=== PATIENT | male | born 1940 | race Caucasian/White ===

== ENCOUNTER 2019-04-13 16:36 | Inpatient (IN) | payer MEDICARE ==
[2019-04-13] MEDS ORDERED: IPRATROPIUM-ALBUTEROL 3 ML NEB INHALATION STA ×3 (17:05→19:16)
[2019-04-13] MEDS ORDERED: SODIUM CHLORIDE 0.9% 1,000 ML IV STA (17:05)
[2019-04-13] MEDS ORDERED: methylPREDNISolone SOD SUCCI 125 MG/2 ML VIAL IV STA (17:05)
--- NOTE | 2019-04-13 17:08 | ED ---
SOB HPI - General Chief Complaint: Shortness of Breath Stated Complaint: SOB Time Seen by Provider: 04/13/19 16:45 Source: patient, family, RN notes reviewed Mode of arrival: ambulatory Limitations: no limitations - History of Present Illness Initial Comments: This is a 78-year-old male with a history of COPD who states having shortness of breath for the past 5 days getting progressively worse he has exertional dyspnea and dry cough no fevers chills or sweats reported no E was diaphoretic upon arrival. No chest pain reported no other modifying factors MD Complaint: shortness of breath - Related Data Home Medications Medication Instructions Recorded Confirmed Aspirin 325 mg PO HS 04/13/19 04/13/19 Gemfibrozil [Lopid] 600 mg PO HS 04/13/19 04/13/19 Ranitidine HCl [Zantac] 150 mg PO HS 04/13/19 04/13/19 Allergies Allergy/AdvReac Type Severity Reaction Status Date / Time No Known Allergies Allergy Verified 04/13/19 17:14 Review of Systems ROS Statement: Those systems with pertinent positive or pertinent negative responses have been documented in the HPI. ROS Other: All systems not noted in ROS Statement are negative. Past Medical History Past Medical History: COPD, GERD/Reflux, Hyperlipidemia History of Any Multi-Drug Resistant Organisms: None Reported Additional Past Surgical History / Comment(s): carotid artery, L leg angioplasty with stent Past Psychological History: No Psychological Hx Reported Smoking Status: Former smoker Past Alcohol Use History: None Reported Past Drug Use History: None Reported General Exam - General Exam Comments Initial Comments: Is a well-developed asthenic appearing male who is awake alert oriented 3 Limitations: no limitations General appearance: alert, anxious Head exam: Present: atraumatic, normocephalic, normal inspection Eye exam: Present: normal appearance, PERRL, EOMI. Absent: scleral icterus, conjunctival injection, periorbital swelling ENT exam: Present: mucous membranes dry Neck exam: Present: normal inspection. Absent: tenderness, meningismus, lymphadenopathy Respiratory exam: Present: wheezes, rales, decreased breath sounds. Absent: respiratory distress, rhonchi, stridor Cardiovascular Exam: Present: normal rhythm, tachycardia, normal heart sounds. Absent: systolic murmur, diastolic murmur, rubs, gallop, clicks GI/Abdominal exam: Present: soft, normal bowel sounds. Absent: distended, tenderness, guarding, rebound, rigid Extremities exam: Present: normal inspection, full ROM, normal capillary refill. Absent: tenderness, pedal edema, joint swelling, calf tenderness Back exam: Present: normal inspection Neurological exam: Present: alert, oriented X3, CN II-XII intact Psychiatric exam: Present: normal affect, normal mood Skin exam: Present: warm, dry, intact, normal color. Absent: rash Course Vital Signs 04/13/19 04/13/19 04/13/19 16:38 17:17 17:25 Temperature 98 F Pulse Rate 131 H 117 H 128 H Respiratory 24 20 20 Rate Blood Pressure 205/94 O2 Sat by Pulse 83 L Oximetry 04/13/19 04/13/19 04/13/19 17:30 18:19 18:30 Temperature Pulse Rate 118 H 113 H 120 H Respiratory 37 H 20 37 H Rate Blood Pressure 150/84 129/102 O2 Sat by Pulse 93 L 98 Oximetry 04/13/19 04/13/19 04/13/19 19:00 19:18 19:31 Temperature 97.2 F L Pulse Rate 114 H 110 H 113 H Respiratory 46 H 20 20 Rate Blood Pressure 152/75 147/71 O2 Sat by Pulse 96 96 Oximetry 04/13/19 19:41 Temperature Pulse Rate 115 H Respiratory 20 Rate Blood Pressure O2 Sat by Pulse Oximetry - Reevaluation(s) Reevaluation #1: 04/13/19 20:08 Reevaluation patient after initial treatment revealed minimal improvement. Medical Decision Making - Medical Decision Making Patient did require multiple breathing treatments and will be admitted I did discuss case with Dr. Travis. He does have evidence of pneumonia COPD exacerbation. Patient will be made to Dr. Fernando - Lab Data Result diagrams: 04/13/19 16:54 04/13/19 16:54 Lab Results 04/13/19 04/13/19 04/13/19 Range/Units 16:54 16:54 16:54 WBC 10.9 H (3.8-10.6) k/uL RBC 4.27 L (4.30-5.90) m/uL Hgb 13.2 (13.0-17.5) gm/dL Hct 40.2 (39.0-53.0) % MCV 94.2 (80.0-100.0) fL MCH 31.0 (25.0-35.0) pg MCHC 32.9 (31.0-37.0) g/dL RDW 14.4 (11.5-15.5) % Plt Count 264 (150-450) k/uL Neutrophils % 91 % Lymphocytes % 5 % Monocytes % 2 % Eosinophils % 0 % Basophils % 0 % Neutrophils # 9.9 H (1.3-7.7) k/uL Lymphocytes # 0.5 L (1.0-4.8) k/uL Monocytes # 0.3 (0-1.0) k/uL Eosinophils # 0.0 (0-0.7) k/uL Basophils # 0.0 (0-0.2) k/uL PT (9.0-12.0) sec INR (<1.2) APTT (22.0-30.0) sec Sodium 133 L (137-145) mmol/L Potassium 3.6 (3.5-5.1) mmol/L Chloride 97 L (98-107) mmol/L Carbon Dioxide 19 L (22-30) mmol/L Anion Gap 17 mmol/L BUN 26 H (9-20) mg/dL Creatinine 1.06 (0.66-1.25) mg/dL Est GFR (CKD-EPI)AfAm 78 (>60 ml/min/1.73 sqM) Est GFR (CKD-EPI)NonAf 67 (>60 ml/min/1.73 sqM) Glucose 139 H (74-99) mg/dL Calcium 8.7 (8.4-10.2) mg/dL Magnesium 2.5 H (1.6-2.3) mg/dL Total Bilirubin 2.0 H (0.2-1.3) mg/dL AST 50 (17-59) U/L ALT 32 (21-72) U/L Alkaline Phosphatase 283 H (38-126) U/L Troponin I (0.000-0.034) ng/mL NT-Pro-B Natriuret Pep 534 pg/mL Total Protein 6.3 (6.3-8.2) g/dL Albumin 3.4 L (3.5-5.0) g/dL 04/13/19 04/13/19 Range/Units 16:54 16:54 WBC (3.8-10.6) k/uL RBC (4.30-5.90) m/uL Hgb (13.0-17.5) gm/dL Hct (39.0-53.0) % MCV (80.0-100.0) fL MCH (25.0-35.0) pg MCHC (31.0-37.0) g/dL RDW (11.5-15.5) % Plt Count (150-450) k/uL Neutrophils % % Lymphocytes % % Monocytes % % Eosinophils % % Basophils % % Neutrophils # (1.3-7.7) k/uL Lymphocytes # (1.0-4.8) k/uL Monocytes # (0-1.0) k/uL Eosinophils # (0-0.7) k/uL Basophils # (0-0.2) k/uL PT 10.8 (9.0-12.0) sec INR 1.0 (<1.2) APTT 27.5 (22.0-30.0) sec Sodium (137-145) mmol/L Potassium (3.5-5.1) mmol/L Chloride (98-107) mmol/L Carbon Dioxide (22-30) mmol/L Anion Gap mmol/L BUN (9-20) mg/dL Creatinine (0.66-1.25) mg/dL Est GFR (CKD-EPI)AfAm (>60 ml/min/1.73 sqM) Est GFR (CKD-EPI)NonAf (>60 ml/min/1.73 sqM) Glucose (74-99) mg/dL Calcium (8.4-10.2) mg/dL Magnesium (1.6-2.3) mg/dL Total Bilirubin (0.2-1.3) mg/dL AST (17-59) U/L ALT (21-72) U/L Alkaline Phosphatase (38-126) U/L Troponin I <0.012 (0.000-0.034) ng/mL NT-Pro-B Natriuret Pep pg/mL Total Protein (6.3-8.2) g/dL Albumin (3.5-5.0) g/dL - EKG Data -: EKG Interpreted by Ks EKG shows normal: sinus rhythm (EKG shows sinus tachycardia rate was 125. Interval 132 QRS duration 80 daily since QTC 322/464 evidence of LVH) - Radiology Data Radiology results: report reviewed (I did review the imaging and report evidence of right lower lobe infiltrate with pulmonary fibrosis findings), image reviewed Critical Care Time Critical Care Time: Yes Critical Care Time: 37 minutes of critical care time which includes initial presentation with history physical labs x-rays several reevaluation patient response to therapy discussion with the admitting physician admission orders documentation the above Disposition Clinical Impression: Right lower lobe pneumonia, Adult respiratory distress syndrome, Acute exacerbation of chronic obstructive airways disease, Tachycardia, Dehydration Disposition: ADMITTED IP TO THIS HOSP Condition: Fair Referrals: Adrien Fernando DO [Primary Care Provider] - 1-2 days
[2019-04-13 17:25] LABS: Partial Thromboplastin Time 27.5 sec (22.0-30.0); Prothrombin Time 10.8 sec (9.0-12.0)
[2019-04-13 17:32] LABS: Basophils % (A) 0 %; Eosinophils % (A) 0 %; HCT 40.2 % (39.0-53.0); HGB 13.2 gm/dL (13.0-17.5); Lymphocytes # (A) 0.5 k/uL (1.0-4.8); Lymphocytes % (A) 5 %; MCHC 32.9 g/dL (31.0-37.0); MCV 94.2 fL (80.0-100.0); Mean Platelet Volume 8.5; Monocytes # (A) 0.3 k/uL (0-1.0); Monocytes % (A) 2 %; Neutrophils # (A) 9.9 k/uL (1.3-7.7); Neutrophils % (A) 91 %; Platelet Count 264 k/uL (150-450); RBC 4.27 m/uL (4.30-5.90); RDW 14.4 % (11.5-15.5); WBC 10.9 k/uL (3.8-10.6)
[2019-04-13 17:34] LABS: Albumin 3.4 g/dL (3.5-5.0); Calcium 8.7 mg/dL (8.4-10.2); Magnesium 2.5 mg/dL (1.6-2.3); Potassium 3.6 mmol/L (3.5-5.1); Total Protein 6.3 g/dL (6.3-8.2)
[2019-04-13] MEDS ORDERED: SODIUM CHLORIDE 0.9% 500 ML 500 ML IV STA (17:38)
--- NOTE | 2019-04-13 17:47 | XR ---
EXAMINATION TYPE: XR chest 2V DATE OF EXAM: 04/13/2019 COMPARISON: NONE HISTORY: Difficulty breathing TECHNIQUE: Frontal and lateral views of the chest are obtained. FINDINGS: There is extensive coarse interstitial and alveolar pulmonary infiltrates. Heart size is n ormal. I do not suspect heart failure. There is slight blunting of the right costophrenic angle. Ther e are chest leads. IMPRESSION: Pulmonary interstitial fibrosis. Acute pneumonia right lower lobe is possible. No obviou s heart failure.
[2019-04-13] MEDS ORDERED: PNEUMONIA PROTOCOL UTILIZED 1 EACH MISC PO PRN (20:11)
[2019-04-13] MEDS ORDERED: AZITHROMYCIN 500 MG in SODIUM CHLORIDE 0.9% 250 ML IVPB STA (20:11)
[2019-04-13] MEDS: SODIUM CHLORIDE 0.9% 1,000 ML IV SCH (21:09)
[2019-04-13] MEDS ORDERED: SODIUM CHLORIDE 0.9% 500 ML 500 ML IV ONE (21:11)
[2019-04-13] MEDS: FENOFIBRATE 160 MG TAB PO SCH (21:57)
[2019-04-13] MEDS: FAMOTIDINE 20 MG TAB PO SCH (21:57)
[2019-04-13] MEDS: ASPIRIN 325 MG TAB PO SCH (21:58)
[2019-04-13] MEDS: IPRATROPIUM-ALBUTEROL 3 ML NEB INHALATION SCH (22:58)
[2019-04-13] MEDS: methylPREDNISolone SOD SUCCI 125 MG/2 ML VIAL IV SCH (23:42)
[2019-04-14] MEDS: IPRATROPIUM-ALBUTEROL 3 ML NEB INHALATION SCH ×6 (03:10→23:54)
[2019-04-14 03:12] VITALS: BMI 21.9
[2019-04-14] MEDS: methylPREDNISolone SOD SUCCI 125 MG/2 ML VIAL IV SCH ×4 (06:04→21:28)
--- NOTE | 2019-04-14 07:46 | XR ---
EXAMINATION TYPE: XR chest 2V DATE OF EXAM: 04/14/2019 HISTORY: pneumonia. REFERENCE: Previous study dated 04/13/2019. FINDINGS: The lungs are overinflated. There is worsening interstitial change present bilaterally in t he lung bases. The heart is not enlarged. There is blunting of both CP angles. IMPRESSION: 1. COPD. 2. WORSENING INTERSTITIAL LUNG DISEASE LIKELY REPRESENTING ATYPICAL PNEUMONIA. 3. SMALL, BILATERAL EFFUSIONS.
[2019-04-14] MEDS: AZITHROMYCIN 500 MG TAB PO SCH (09:15)
[2019-04-14] MEDS: INSULIN ASPART (NovoLOG) 100 UNIT/ML VIAL SQ SCH ×3 (12:04→22:28)
--- NOTE | 2019-04-14 12:05 | CONS ---
CONSULTATION DATE OF CONSULTATION: April 14, 2019 This is a 78-year-old male, well known to me. I serve as his primary doctor. He does have a history of underlying COPD, but in the past has refused treatment for COPD. He also suffers from hyperlipidemia and acid reflux disease. Anyway, he was [place] at [place] with the family and grandkids. Up there over the last 5 days or so, he noted that he got progressively more short of breath. In addition, he was coughing, producing some phlegm. No fever, chills or chest pain. As the days went on, he got worse and worse. He noticed that when he was cutting the lawn and just walking on a flat surface. He got so bad that he decided to come into the emergency room on April 13 to be evaluated. He was seen by the ER physician there. He was admitted with a diagnosis of pneumonia and COPD exacerbation. For many years, Alvaro has been a heavy smoker. He quit smoking 7 years ago when he was 71. He likely started smoking before he was 20 years of age. So he probably has more than 50 years of tobacco use at 1-2 packs a day. Occupationally, he worked at [employer], which is a [employer] company here in town. He retired a number of years back. Currently, he is feeling a bit better today than he did yesterday. HOME MEDICATIONS: Include aspirin, gemfibrozil, and ranitidine. ALLERGIES: Denied. MEDICAL HISTORY: Hyperlipidemia, acid reflux disease and COPD, although he has never really taken any treatments for COPD. SURGICAL HISTORY: Includes a carotid endarterectomy, left leg angioplasty with stent, and some other minor procedures. SOCIAL HISTORY: Positive for previous heavy tobacco use. He smoked for more than 50 years at 1-2 packs a day. Quit 7 years ago. Denies any significant alcohol use or illicit drug use. Occupational history that he worked previously at [employer]. He is currently retired. FAMILY HISTORY: Unremarkable. He states his family was relatively healthy. He does not recall his mother or father having any major medical issues. REVIEW OF SYSTEMS: CONSTITUTIONAL: Weakness. NEUROLOGIC negative. HEENT negative. CARDIOVASCULAR: Negative. PULMONARY: Shortness of breath, cough, phlegm production, although initially the phlegm production was minimal at best. GI negative. negative. RHEUMATOLOGIC negative. IMMUNOLOGIC negative. ENDOCRINOLOGIC negative. DERMATOLOGIC negative. PHYSICAL EXAMINATION: VITAL SIGNS: Current vital signs are reviewed. His temperature is 98.3. Heart rate 100, respiratory rate 20, blood pressure 157/80, mean 105. Saturations are in the low 90s on 6 L nasal cannula. When I entered the room, he was just completing a breathing treatment. There was some mild conversational dyspnea. No audible wheezing. No use of accessory muscles. HEENT examination is grossly unremarkable. Nasal O2 in place. NECK: Supple. Full range of motion. No adenopathy. Neck veins are flat. CARDIOVASCULAR examination reveals regular rhythm and rate. He is mildly tachycardic. Heart rate 100. It is regular. Sinus tachycardia. No S3, S4, or murmur. LUNGS: Some coarse rhonchi and wheezes. Breath sounds are diminished. Some crackles at the bases. ABDOMEN: Soft. Bowel sounds are heard. EXTREMITIES are intact. No cyanosis, clubbing, or edema. SKIN: Without rash. NEUROLOGIC examination is brief but nonfocal. LABS: Reviewed. White count 10.9, hemoglobin, hematocrit and platelet count all normal. PT/INR, PTT normal. Sodium 133, potassium 3.6, chloride 97, CO2 19 anion gap is 17, BUN and creatinine were 26 and 1.06. N terminal proBNP was 534. Albumin 3.4, magnesium 2.5. Bilirubin 2.0. I do not see a lactic acid 4. Chest x-ray shows changes of COPD as well as interstitial changes consistent with atypical pneumonia with small effusions. His chest x-ray in my opinion appears a bit worse than the initial x-ray from yesterday. Medications are reviewed. He is on Zithromax 500 mg a day orally and ceftriaxone 1 g a day IV. He is getting DuoNeb. He is also getting Solu-Medrol. We will go ahead and add some formoterol and Pulmicort. The rest of his medications look very appropriate. The antibiotic choice is perfect. ASSESSMENT: 1. Community-acquired pneumonia. 2. Acute hypoxemic respiratory failure. 3. Chronic obstructive pulmonary disease exacerbation in a patient with a previous history of heavy tobacco use. 4. History of acid reflux disease. 5. Hyperlipidemia. 6. Peripheral vascular occlusive disease. PLAN: The patient's medications are appropriate. We will add some Pulmicort and Perforomist. Additional recommendations and suggestions forthcoming. We will ask for blood, urine and sputum cultures. Prognosis is guarded. We will follow. MMODL / IJN: [id number] /
--- NOTE | 2019-04-14 14:15 | P.HPIM ---
History of Present Illness H&P Date: 04/14/19 Chief Complaint: Shortness of breath Mr. Irby is a 78-year-old male with a past medical history of hypertension, COPD, GERD, hyperlipidemia, carotid artery endarterectomy[, left leg angioplasty with stent coming in with a chief complaint of difficulty in breathing for the past 1 week. Patient mentions that he was mowing his lawn one week back when he inhaled a lot of dust particles and since then has been having mild difficulty in breathing. But for the past 1 day his difficulty in breathing has gotten worse that he could not take a flight of stairs without getting short of breath. Patient denies having any fevers chills or rigors. He denies having any cough. He has almost [id number] of smoking but quit 8-10 years back. In the emergency the patient had a chest x-ray which was showing interstitial lung disease with atypical pneumonia and bilateral small effusions. So the patient has been started on ceftriaxone and Zithromax and admitted to the floors for further management. Review of Systems REVIEW OF SYSTEMS: CONSTITUTIONAL: No fever, no malaise, no fatigue. HEENT: No recent visual problems or hearing problems. Denied any sore throat. CARDIOVASCULAR: No chest pain, orthopnea, PND, no palpitations, no syncope. PULMONARY: As per HPI GASTROINTESTINAL: No diarrhea, no nausea, no vomiting, no abdominal pain. NEUROLOGICAL: No headaches, no weakness, no numbness. HEMATOLOGICAL: Denies any bleeding or petechiae. GENITOURINARY: Denies any burning micturition, frequency, or urgency. MUSCULOSKELETAL/RHEUMATOLOGICAL: Denies any joint pain, swelling, or any muscle pain. ENDOCRINE: Denies any polyuria or polydipsia. The rest of the 14-point review of systems is negative. Past Medical History Past Medical History: COPD, GERD/Reflux, Hyperlipidemia History of Any Multi-Drug Resistant Organisms: None Reported Additional Past Surgical History / Comment(s): carotid artery, L leg angioplasty with stent Past Anesthesia/Blood Transfusion Reactions: No Reported Reaction Past Psychological History: No Psychological Hx Reported Smoking Status: Former smoker Past Alcohol Use History: None Reported Past Drug Use History: None Reported - Past Family History Mother Family Medical History: No Reported History Medications and Allergies Home Medications Medication Instructions Recorded Confirmed Type Aspirin 325 mg PO HS 04/13/19 04/13/19 History Gemfibrozil [Lopid] 600 mg PO HS 04/13/19 04/13/19 History Ranitidine HCl [Zantac] 150 mg PO HS 04/13/19 04/13/19 History Allergies Allergy/AdvReac Type Severity Reaction Status Date / Time No Known Allergies Allergy Verified 04/13/19 17:14 Physical Exam Vitals: Vital Signs Temp Pulse Pulse Resp BP BP Pulse Ox 04/14/19 12:21 103 H 04/14/19 12:08 100 04/14/19 09:14 106 H 04/14/19 08:59 112 H 91 L 04/14/19 05:00 98.3 F 113 H 20 157/80 90 L 04/14/19 03:17 108 H 04/14/19 03:10 104 H 04/13/19 23:09 112 H 04/13/19 23:01 110 H 04/13/19 22:50 92 20 04/13/19 22:04 97.8 F 110 H 20 173/86 96 04/13/19 21:41 19 04/13/19 21:00 190/86 04/13/19 20:00 157/66 04/13/19 19:41 115 H 20 04/13/19 19:31 113 H 20 04/13/19 19:18 97.2 F L 110 H 20 147/71 96 04/13/19 19:00 114 H 46 H 152/75 96 04/13/19 18:30 120 H 37 H 129/102 98 04/13/19 18:19 113 H 20 04/13/19 17:30 118 H 37 H 150/84 93 L 04/13/19 17:25 128 H 20 04/13/19 17:17 117 H 20 04/13/19 16:38 98 F 131 H 24 205/94 83 L Intake and Output 04/13/19 04/14/19 04/14/19 22:59 06:59 14:59 Intake Total 950 590 Balance 950 590 Intake: Oral 950 590 Other: # Voids 3 Weight 63.503 kg GEN. APPEARANCE: alert, in no apparent distress HEAD EXAM: atraumatic, normocephalic, normal inspection EYE EXAM: No pallor. No icterus ENT EXAM: normal exam, mucous membranes moist NECK EXAM: Trachea is midline. No lymphadenopathy. No thyromegaly. RESPIRATORY EXAM: Decreased breath sounds in all lung [place]. Few crackles at the lower lung bases bilaterally CARDIOVASCULAR EXAM: S1-S2 heard. No additional sounds. GI/ABDOMINAL EXAM: Abdomen is soft nontender. No organomegaly. Normal bowel sounds. EXTREMITIES EXAM: No peripheral edema. NEUROLOGICAL EXAM: alert, oriented X3, no focal neurological deficits. PSYCHIATRIC EXAM: normal affect, normal mood SKIN EXAM: warm, dry, intact, normal color. Absent: rash Results CBC & Chem 7: 04/13/19 16:54 04/13/19 16:54 Labs: Abnormal Lab Results - Last 24 Hours (Table) 04/13/19 04/13/19 Range/Units 16:54 16:54 WBC 10.9 H (3.8-10.6) k/uL RBC 4.27 L (4.30-5.90) m/uL Neutrophils # 9.9 H (1.3-7.7) k/uL Lymphocytes # 0.5 L (1.0-4.8) k/uL Sodium 133 L (137-145) mmol/L Chloride 97 L (98-107) mmol/L Carbon Dioxide 19 L (22-30) mmol/L BUN 26 H (9-20) mg/dL Glucose 139 H (74-99) mg/dL Magnesium 2.5 H (1.6-2.3) mg/dL Total Bilirubin 2.0 H (0.2-1.3) mg/dL Alkaline Phosphatase 283 H (38-126) U/L Albumin 3.4 L (3.5-5.0) g/dL Thrombosis Risk Factor Assmnt - Choose All That Apply Any of the Below Risk Factors Present?: Yes Each Factor Represents 1 point: Abnormal pulmonary function (COPD) Each Risk Factor Represents 3 Points: Age 75 years or older Thrombosis Risk Factor Assessment Total Risk Factor Score: 4 Thrombosis Risk Factor Assessment Level: Moderate Risk Assessment and Plan Assessment: ASSESSMENT Acute hypoxic respiratory failure secondary to community-acquired pneumonia Cardiac quiet pneumonia Acute exacerbation of COPD For more heavy smoker Hypertension Peripheral arterial disease Hyperlipidemia Status post carotid artery endarterectomy Left femoral angioplasty with stenting in the past PLAN: Patient has been started on ceftriaxone and Zithromax which will be continued for his community-acquired pneumonia. Continue with Solu-Medrol and breathing treatments. Will follow up on blood and urine cultures. Patient has been restarted on his home medications. Further recommendations to follow depending on the progress of the patient.
[2019-04-14 17:14] LABS: Glucose,Whole Blood 157 mg/dL (75-99)
[2019-04-14] MEDS: BUDESONIDE 1 MG/2 ML NEBU INHALATION SCH (19:59)
[2019-04-14] MEDS: FORMOTEROL FUMARATE 20 MCG/2 ML NEBU INHALATION SCH (19:59)
[2019-04-14] MEDS: SODIUM CHLORIDE 0.9% 1,000 ML IV SCH ×2 (20:13→22:28)
[2019-04-14 20:25] LABS: Glucose,Whole Blood 114 mg/dL (75-99)
[2019-04-14] MEDS: FAMOTIDINE 20 MG TAB PO SCH (21:28)
[2019-04-14] MEDS: ASPIRIN 325 MG TAB PO SCH (21:28)
[2019-04-14] MEDS: FENOFIBRATE 160 MG TAB PO SCH (22:30)
[2019-04-15] MEDS: IPRATROPIUM-ALBUTEROL 3 ML NEB INHALATION SCH ×6 (04:26→23:35)
[2019-04-15] MEDS: methylPREDNISolone SOD SUCCI 125 MG/2 ML VIAL IV SCH ×2 (05:01→13:06)
[2019-04-15 07:06] LABS: Glucose,Whole Blood 119 mg/dL (75-99)
[2019-04-15] MEDS: INSULIN ASPART (NovoLOG) 100 UNIT/ML VIAL SQ SCH ×4 (08:23→21:03)
[2019-04-15] MEDS: AZITHROMYCIN 500 MG TAB PO SCH (08:24)
[2019-04-15] MEDS: FORMOTEROL FUMARATE 20 MCG/2 ML NEBU INHALATION SCH ×2 (08:51→20:47)
[2019-04-15] MEDS: BUDESONIDE 1 MG/2 ML NEBU INHALATION SCH ×2 (08:51→20:47)
[2019-04-15 09:41] LABS: African American GFR (CKD) >90 (>60 ml/min/1.73 sqM); Anion Gap 12 mmol/L; Blood Urea Nitrogen 30 mg/dL (9-20); Calcium 8.5 mg/dL (8.4-10.2); Carbon Dioxide 24 mmol/L (22-30); Chloride 102 mmol/L (98-107); Glucose 112 mg/dL (74-99); Potassium 4.2 mmol/L (3.5-5.1); Sodium 138 mmol/L (137-145)
[2019-04-15 09:54] LABS: Basophils # (A) 0.1 k/uL (0-0.2); Basophils % (A) 1 %; Eosinophils % (A) 0 %; HCT 36.2 % (39.0-53.0); HGB 11.4 gm/dL (13.0-17.5); Lymphocytes # (A) 0.5 k/uL (1.0-4.8); Lymphocytes % (A) 4 %; MCH 30.5 pg (25.0-35.0); MCHC 31.5 g/dL (31.0-37.0); MCV 96.9 fL (80.0-100.0); Mean Platelet Volume 9.1; Monocytes # (A) 0.3 k/uL (0-1.0); Monocytes % (A) 2 %; Neutrophils % (A) 92 %; Platelet Count 237 k/uL (150-450); RBC 3.74 m/uL (4.30-5.90); RDW 14.7 % (11.5-15.5)
[2019-04-15 11:28] LABS: Glucose,Whole Blood 130 mg/dL (75-99)
--- NOTE | 2019-04-15 12:45 | P.PN ---
Subjective Progress Note Date: 04/15/19 On today's evaluation of 04/15/2019, this 78-year-old male patient is still being treated for an acute COPD exacerbation. The patient is also known to have hyperlipidemia and Reflux. The patient is a chronic smoker. He is feeling slightly better compared to yesterday. He remains on bronchodilators ar [id number]. He used to work also in manufacturing. He has smoked more than [id number]. On today's evaluation, it's obvious that the patient is going to need home O2 and will going to arrange for him home oxygen concentrator and portable tanks. His cough is less congested. There may be some early right lower lobe pneumonia. No nausea. No vomiting. No abdominal pain. No chest pain. Objective - Vital Signs Vital signs: Vital Signs Temp 98.1 F 04/15/19 12:19 Pulse 100 04/15/19 12:33 Resp 17 04/15/19 12:19 BP 188/85 04/15/19 12:19 Pulse Ox 79 L 04/15/19 12:20 Intake & Output 04/14/19 04/15/19 04/15/19 18:59 06:59 18:59 Intake Total 1999 Balance 1999 Intake: Intake, IV Titration 580 Amount Sodium Chloride 0.9% 1, 480 000 ml @ 80 mls/hr IV . [id number] KAYLA Rx#:[id number] cefTRIAXone 1 gm In 100 Sodium Chloride 0.9% 50 ml @ 100 mls/hr IVPB Q24H KAYLA Rx#:[id number] Oral 1420 Other: # Voids 3 2 - Exam The patient appeared well nourished and normally developed. Vital signs as documented. Head exam is unremarkable. No scleral icterus or corneal arcus noted. Neck is without jugular venous distension, thyromegaly, or carotid bruits. Carotid upstrokes are brisk bilaterally. Lungs diminished breath sounds bilaterally along with scattered expiratory wheezes throughout the lung [place] Cardiac exam reveals the PMI to be normally sized and situated. Rhythm is regular. First and second heart sounds normal. No murmurs, rubs or gallops. Abdominal exam reveals normal bowel sounds, no masses, no organomegaly and no aortic enlargement. Extremities are nonedematous and both femoral and pedal pulses are normal. - Labs CBC & Chem 7: 04/15/19 08:26 04/15/19 08:26 Labs: Abnormal Lab Results - Last 24 Hours (Table) 04/14/19 04/14/19 04/15/19 Range/Units 17:12 20:24 07:01 WBC (3.8-10.6) k/uL RBC (4.30-5.90) m/uL Hgb (13.0-17.5) gm/dL Hct (39.0-53.0) % Neutrophils # (1.3-7.7) k/uL Lymphocytes # (1.0-4.8) k/uL BUN (9-20) mg/dL Glucose (74-99) mg/dL POC Glucose (mg/dL) 157 H 114 H 119 H (75-99) mg/dL 04/15/19 04/15/19 04/15/19 Range/Units 08:26 08:26 11:26 WBC 13.0 H (3.8-10.6) k/uL RBC 3.74 L (4.30-5.90) m/uL Hgb 11.4 L (13.0-17.5) gm/dL Hct 36.2 L (39.0-53.0) % Neutrophils # 12.0 H (1.3-7.7) k/uL Lymphocytes # 0.5 L (1.0-4.8) k/uL BUN 30 H (9-20) mg/dL Glucose 112 H (74-99) mg/dL POC Glucose (mg/dL) 130 H (75-99) mg/dL Microbiology - Last 24 Hours (Table) 04/14/19 09:22 Gram Stain - Preliminary Sputum Sputum Culture - Preliminary 04/13/19 20:53 Blood Culture - Preliminary Blood No Growth after 24 hours 04/13/19 17:43 Blood Culture - Preliminary Blood No Growth after 24 hours Assessment and Plan Plan: 1 Acute hypoxic respiratory failure secondary to community-acquired pneumonia 2 COPD exacerbation secondary to above 3 chronic smoker 4 peripheral vascular disease 5 hypertension 6 hyperlipidemia 7 peripheral vascular disease with previous carotid endarterectomy endovascular intervention to the lower extremities Plan Arrange home O2. Add Pulmicort and Perforomist nebulized treatments twice a day. Continue IV Solu-Medrol. Continue Zithromax and add Rocephin. Will need another 24-48 hours of inpatient therapy to his condition is more stabilized. The preliminary sputum is on is still negative. Blood cultures still negative.
[2019-04-15] MEDS: SODIUM CHLORIDE 0.9% 1,000 ML IV SCH ×2 (13:07→23:15)
--- NOTE | 2019-04-15 14:50 | P.PN ---
Subjective Progress Note Date: 04/15/19 Principal diagnosis: Right lower lobe pneumonia Mr. Irby is a 78-year-old male with a past medical history of hypertension, COPD, GERD, hyperlipidemia, carotid artery endarterectomy[, left leg angioplasty with stent coming in with a chief complaint of difficulty in geovani athing for the past 1 week. Patient mentions that he was mowing his lawn one week back when he inhaled a lot of dust particles and since then has been having mild difficulty in breathing. But for the past 1 day his difficulty in breathing has gotten worse that he could not take a flight of stairs without getting short of breath. Patient denies having any fevers chills or rigors. He denies having any cough. He has almost [id number] of smoking but quit 8-10 years back. In the emergency the patient had a chest x-ray which was showing interstitial lung disease with atypical pneumonia and bilateral small effusions. So the patient has been started on ceftriaxone and Zithromax and admitted to the floors for further management. On 04/15/19 - patient is comfortably sitting up in a chair by the bedside and having his lunch. is at the bedside. She reports that the patient is confused at times. He could see things that are moving in the room. Patient does not have history of mental health issues. He reports that his breathing is much better compared to yesterday. He only has mild cough. No chest pain or palpitations. No abdominal pain nausea vomiting or diarrhea. No dysuria or hematuria. Denies having any weakness of his extremities. No headaches or blurring of vision or weakness of his extremities. Medications have been reviewed: Active Medications Albuterol/Ipratropium (Duoneb 0.5 Mg-3 Mg/3 Ml Soln) 3 ml INHALATION RT-Q4H [facility] Last Admin: 04/15/19 12:33 Dose: 3 ml Documented by: Aspirin (Aspirin) 325 mg PO HS [facility] Last Admin: 04/14/19 21:28 Dose: 325 mg Documented by: Azithromycin (Zithromax) 500 mg PO DAILY [facility] Last Admin: 04/15/19 08:24 Dose: 500 mg Documented by: Budesonide (Pulmicort) 1 mg INHALATION RT-BID [facility] Last Admin: 04/15/19 08:51 Dose: 1 mg Documented by: Famotidine (Pepcid) 20 mg PO [facility] Last Admin: 04/14/19 21:28 Dose: 20 mg Documented by: Fenofibrate (Lofibra) 160 mg PO [facility] Last Admin: 04/14/19 22:30 Dose: 160 mg Documented by: Formoterol Fumarate (Perforomist) 20 mcg INHALATION RT-BID [facility] Last Admin: 04/15/19 08:51 Dose: 20 mcg Documented by: Ceftriaxone Sodium 1 gm/ (Sodium Chloride) 50 mls @ 100 mls/hr IVPB Q24H [facility] Last Admin: 04/14/19 20:04 Dose: 100 mls/hr Documented by: Sodium Chloride (Saline 0.9%) 1,000 mls @ 80 mls/hr IV .[id number] [facility] Last Admin: 04/15/19 13:07 Dose: 80 mls/hr Documented by: Insulin Aspart (Novolog) 0 unit SQ ACHS [facility]; Protocol Last Admin: 04/15/19 13:06 Dose: 1 unit Documented by: Miscellaneous Information (Pneumonia Protocol Utilized) 1 each PO ONCE PRN PRN Reason: Per Protocol Prednisone () 40 mg PO DAILY [facility] Objective - Vital Signs Vital signs: Vital Signs Temp 98.1 F 04/15/19 12:19 Pulse 103 H 04/15/19 12:46 Resp 17 04/15/19 12:19 BP 188/85 04/15/19 12:19 Pulse Ox 79 L 04/15/19 12:20 Intake & Output 04/14/19 04/15/19 04/15/19 18:59 06:59 18:59 Intake Total 1999 640 Balance 1999 640 Intake: Intake, IV Titration 580 640 Amount Sodium Chloride 0.9% 1, 480 640 000 ml @ 80 mls/hr IV . [id number] [facility] Rx#:[id number] cefTRIAXone 1 gm In 100 Sodium Chloride 0.9% 50 ml @ 100 mls/hr IVPB Q24H [facility] Rx#:[id number] Oral 1420 Other: # Voids 3 2 - Exam EN. APPEARANCE: alert, in no apparent distress HEAD EXAM: atraumatic, normocephalic, normal inspection EYE EXAM: No pallor. No icterus ENT EXAM: normal exam, mucous membranes moist NECK EXAM: Trachea is midline. No lymphadenopathy. No thyromegaly. RESPIRATORY EXAM: Decreased breath sounds in all lung [place]. Diminished breath sounds more on the right than left. Few crackles at the right lower lung base. CARDIOVASCULAR EXAM: S1-S2 heard. No additional sounds. GI/ABDOMINAL EXAM: Abdomen is soft nontender. No organomegaly. Normal bowel sounds. EXTREMITIES EXAM: No peripheral edema. NEUROLOGICAL EXAM: alert, oriented X3, no focal neurological deficits. PSYCHIATRIC EXAM: normal affect, normal mood SKIN EXAM: warm, dry, intact, normal color. Absent: rash - Labs CBC & Chem 7: 04/15/19 08:26 04/15/19 08:26 Labs: Abnormal Lab Results - Last 24 Hours (Table) 04/14/19 04/14/19 04/15/19 Range/Units 17:12 20:24 07:01 WBC (3.8-10.6) k/uL RBC (4.30-5.90) m/uL Hgb (13.0-17.5) gm/dL Hct (39.0-53.0) % Neutrophils # (1.3-7.7) k/uL Lymphocytes # (1.0-4.8) k/uL BUN (9-20) mg/dL Glucose (74-99) mg/dL POC Glucose (mg/dL) 157 H 114 H 119 H (75-99) mg/dL 04/15/19 04/15/19 04/15/19 Range/Units 08:26 08:26 11:26 WBC 13.0 H (3.8-10.6) k/uL RBC 3.74 L (4.30-5.90) m/uL Hgb 11.4 L (13.0-17.5) gm/dL Hct 36.2 L (39.0-53.0) % Neutrophils # 12.0 H (1.3-7.7) k/uL Lymphocytes # 0.5 L (1.0-4.8) k/uL BUN 30 H (9-20) mg/dL Glucose 112 H (74-99) mg/dL POC Glucose (mg/dL) 130 H (75-99) mg/dL Microbiology - Last 24 Hours (Table) 04/14/19 09:22 Gram Stain - Preliminary Sputum Sputum Culture - Preliminary 04/13/19 20:53 Blood Culture - Preliminary Blood No Growth after 24 hours 04/13/19 17:43 Blood Culture - Preliminary Blood No Growth after 24 hours Assessment and Plan Assessment: ASSESSMENT Acute hypoxic respiratory failure secondary to community-acquired pneumonia Cardiac quiet pneumonia Acute exacerbation of COPD For more heavy smoker Hypertension Peripheral arterial disease Hyperlipidemia Status post carotid artery endarterectomy Left femoral angioplasty with stenting in the past PLAN: Patient has been started on ceftriaxone and Zithromax which will be continued for his community-acquired pneumonia. Continue with breathing treatments. His Solu-Medrol has been changed to prednisone as the patient is confused which can happen sometimes in elderly patients with IV steroids. Will follow up on blood and urine cultures. Patient has been restarted on his home medications. Further recommendations to follow depending on the progress of the patient.
[2019-04-15 17:06] LABS: Glucose,Whole Blood 133 mg/dL (75-99)
[2019-04-15] MEDS: predniSONE 20 MG TAB PO SCH (18:25)
[2019-04-15 20:13] LABS: Glucose,Whole Blood 132 mg/dL (75-99)
[2019-04-15] MEDS: ASPIRIN 325 MG TAB PO SCH (21:03)
[2019-04-15] MEDS: FAMOTIDINE 20 MG TAB PO SCH (21:03)
[2019-04-15] MEDS: FENOFIBRATE 160 MG TAB PO SCH (21:03)
[2019-04-16] MEDS ORDERED: ALPRAZolam 0.5 MG TAB PO STA (02:05)
[2019-04-16] MEDS: IPRATROPIUM-ALBUTEROL 3 ML NEB INHALATION SCH ×6 (03:39→23:30)
[2019-04-16 06:59] LABS: Glucose,Whole Blood 105 mg/dL (75-99)
[2019-04-16] MEDS: INSULIN ASPART (NovoLOG) 100 UNIT/ML VIAL SQ SCH ×4 (07:14→21:17)
[2019-04-16] MEDS: BUDESONIDE 1 MG/2 ML NEBU INHALATION SCH ×2 (07:33→18:59)
[2019-04-16] MEDS: FORMOTEROL FUMARATE 20 MCG/2 ML NEBU INHALATION SCH ×2 (07:33→19:00)
[2019-04-16 09:27] LABS: Basophils # (A) 0.1 k/uL (0-0.2); Basophils % (A) 1 %; Eosinophils % (A) 0 %; HCT 35.3 % (39.0-53.0); HGB 11.5 gm/dL (13.0-17.5); Lymphocytes # (A) 0.8 k/uL (1.0-4.8); Lymphocytes % (A) 4 %; MCH 31.8 pg (25.0-35.0); MCHC 32.5 g/dL (31.0-37.0); MCV 97.8 fL (80.0-100.0); Mean Platelet Volume 8.5; Monocytes # (A) 0.5 k/uL (0-1.0); Monocytes % (A) 3 %; Neutrophils # (A) 16.2 k/uL (1.3-7.7); Neutrophils % (A) 88 %; Platelet Count 270 k/uL (150-450); RBC 3.61 m/uL (4.30-5.90); RDW 14.9 % (11.5-15.5); WBC 18.3 k/uL (3.8-10.6)
[2019-04-16] MEDS: predniSONE 20 MG TAB PO SCH (09:36)
[2019-04-16] MEDS: AZITHROMYCIN 500 MG TAB PO SCH (09:36)
[2019-04-16] MEDS ORDERED: RX INFO: IV CONTRAST WAS GIVEN 1 EACH MISC MISCELLANE PRN (10:35)
--- NOTE | 2019-04-16 11:20 | P.PN ---
Subjective Progress Note Date: 04/16/19 Principal diagnosis: Acute hypoxic respiratory failure secondary to community-acquired pneumonia On today's evaluation of 04/15/2019, this 78-year-old male patient is still being treated for an acute COPD exacerbation. The patient is also known to have hyperlipidemia and Reflux. The patient is a chronic smoker. He is feeling slightly better compared to yesterday. He remains on bronchodilators [id number]. He used to work also in manufacturing. He has smoked more th an [id number]. On today's evaluation, it's obvious that the patient is going to need home O2 and will going to arrange for him home oxygen concentrator and portable tanks. His cough is less congested. There may be some early right lower lobe pneumonia. No nausea. No vomiting. No abdominal pain. No chest pain. On 04/16/2019 patient seen in follow-up on the medical oncology floor. He is awake and alert, however he has episodes where he is confused according to his . She also states he has been unsteady on his feet, and becomes extremely short of breath with exertion. Currently on 6 L of oxygen per nasal cannula, and his pulse ox is between 88-90%. Patient is able to get up and ambulate a few feet in the room, but was indeed noted to be unsteady. Patient himself denies any shortness of breath, lung sounds are diminished bilaterally. Patient has a health and safety representative at the bedside. Blood cultures show no growth, sputum culture was negative. No fever or chills. He is on nebulized bronchodilators, Pulmicort and Perforomist and oral prednisone Objective - Vital Signs Vital signs: Vital Signs Temp 97.9 F 04/16/19 05:00 Pulse 94 04/16/19 11:01 Resp 22 04/16/19 05:00 BP 153/72 04/16/19 05:00 Pulse Ox 99 04/16/19 05:00 Intake & Output 04/15/19 04/16/19 04/16/19 18:59 06:59 18:59 Intake Total 640 1220 Balance 640 1220 Intake: Intake, IV Titration 640 560 Amount Sodium Chloride 0.9% 1, 640 560 000 ml @ 80 mls/hr IV . [id number] [facility] Rx#:[id number] Oral 660 Other: # Voids 2 3 - Exam GENERAL EXAM: Alert, pleasant, 70-year-old white male, on 6 L of oxygen with a pulse ox of 88-90% comfortable in no apparent distress. HEAD: Normocephalic/atraumatic. EYES: Normal reaction of pupils, equal size. Conjunctiva pink, sclera white. NOSE: Clear with pink turbinates. THROAT: No erythema or exudates. NECK: No masses, no JVD, no thyroid enlargement, no adenopathy. CHEST: No chest wall deformity. Symmetrical expansion. LUNGS: Diminished air entry with no crackles, wheeze, rhonchi or dullness. CVS: Regular rate and rhythm, normal S1 and S2, no gallops, no murmurs, no rubs ABDOMEN: Soft, nontender. No hepatosplenomegaly, normal bowel sounds, no guarding or rigidity. EXTREMITIES: No clubbing, no edema, no cyanosis, 2+ pulses and upper and lower extremities. MUSCULOSKELETAL: Muscle strength and tone normal. SPINE: No scoliosis or deformity SKIN: No rashes CENTRAL NERVOUS SYSTEM: Alert and oriented -3. No focal deficits, tone is normal in all 4 extremities. PSYCHIATRIC: Alert and oriented -3. Appropriate affect. Intact judgment and insight. - Labs CBC & Chem 7: 04/16/19 09:05 04/15/19 08:26 Labs: Abnormal Lab Results - Last 24 Hours (Table) 04/15/19 04/15/19 04/15/19 Range/Units 11:26 17:05 20:12 WBC (3.8-10.6) k/uL RBC (4.30-5.90) m/uL Hgb (13.0-17.5) gm/dL Hct (39.0-53.0) % Neutrophils # (1.3-7.7) k/uL Lymphocytes # (1.0-4.8) k/uL POC Glucose (mg/dL) 130 H 133 H 132 H (75-99) mg/dL 04/16/19 04/16/19 Range/Units 06:57 09:05 WBC 18.3 H (3.8-10.6) k/uL RBC 3.61 L (4.30-5.90) m/uL Hgb 11.5 L (13.0-17.5) gm/dL Hct 35.3 L (39.0-53.0) % Neutrophils # 16.2 H (1.3-7.7) k/uL Lymphocytes # 0.8 L (1.0-4.8) k/uL POC Glucose (mg/dL) 105 H (75-99) mg/dL Microbiology - Last 24 Hours (Table) 04/14/19 09:22 Gram Stain - Final Sputum Sputum Culture - Final 04/13/19 20:53 Blood Culture - Preliminary Blood No Growth after 48 hours 04/13/19 17:43 Blood Culture - Preliminary Blood No Growth after 48 hours Assessment and Plan Plan: Assessment: 1 Acute hypoxic respiratory failure secondary to community-acquired pneumonia 2 COPD exacerbation secondary to above 3 chronic smoker 4 peripheral vascular disease 5 hypertension 6 hyperlipidemia 7 peripheral vascular disease with previous carotid endarterectomy endovascular intervention to the lower extremities Plan: Continue current antibiotic coverage, will obtain CT chest with contrast, continue with nebulized bronchodilators, we'll switch to oral prednisone to IV steroids, cut down the fluids to KVO. Maintaining safety precautions. We will continue to follow I performed a history & physical examination of the patient and discussed their management with my nurse practitioner, Christine Oleary. I reviewed the nurse practitioner's note and agree with the documented findings and plan of care. Lung sounds are positive for diminished breath sounds. The findings and the impression was discussed with the patient. I attest to the documentation by the nurse practitioner. Time with Patient: Less than 30
[2019-04-16] MEDS: SODIUM CHLORIDE 0.9% 1,000 ML IV SCH (11:35)
[2019-04-16 11:42] LABS: Glucose,Whole Blood 91 mg/dL (75-99)
--- NOTE | 2019-04-16 12:33 | CT ---
EXAMINATION TYPE: CT chest w con DATE OF EXAM: 04/16/2019 COMPARISON: NONE HISTORY: Shortness of breath, history of COPD CT DLP: 430 mGycm. Automated Exposure Control for Dose Reduction was Utilized. TECHNIQUE: CT scan of the thorax is performed following with IV Contrast, patient injected with 100 mL of Isovue 300. FINDINGS: LUNGS: Advanced emphysematous changes are seen of the lungs. Groundglass opacity seen of the right elkin ng apex anteriorly. In addition to honeycombing and advanced lower lobe predominant fibrosis multifoc al opacities are seen, right greater than left again with a peripheral distribution. Interlobular sep eneida thickening is again lower lobe predominant. Nodular contour of the lower lobe consolidations is p resent in there is limited evaluation for pulmonary nodule. Small right and trace left pleural effusi ons are seen. No pneumothorax. No traction bronchiectasis is seen. MEDIASTINUM: There is mediastinal adenopathy with right hilar conglomeration of lymph nodes measuring up to 1.4 cm in short axis anteriorly and 1.7 cm in short axis more posteriorly. Subcarinal lymph no de measures 1 cm in short axis. Prominent paraesophageal lymph nodes and right infrahilar lymph nodes are also seen. Trace coronary artery calcifications are present. No pericardial effusion is seen. OTHER: Mild degree hepatic steatosis is incidentally identified, limiting evaluation for hepatic mass es. This is most focal near the fissure for the falciform ligament. There is slight thickening of the left adrenal gland although this maintains a normal adreniform shape, most commonly related to adren al gland hyperplasia. Mild multilevel degenerative changes of the spine. Motion artifact is seen thro ugh the sternal manubrium, limiting evaluation and appearing as a fracture, likely pseudofracture. IMPRESSION: 1. Interstitial lung disease and pulmonary fibrosis has a usual interstitial pneumonitis pattern alth ough this is a histologic diagnosis. No traction bronchiectasis is yet seen as in advanced disease. A dditionally multifocal confluent opacities predominating in the right lower lobe and to a lesser degr ee within the left lower lobe. Considerations are for multifocal community or hospital acquired pneum onia, cryptogenic organizing pneumonia or aspiration pneumonia. 2. Mediastinal adenopathy is likely reactive. 3. Advanced pulmonary emphysema.
[2019-04-16] MEDS: methylPREDNISolone SOD SUCCI 125 MG/2 ML VIAL IV SCH ×3 (12:40→23:42)
[2019-04-16 16:52] LABS: Glucose,Whole Blood 101 mg/dL (75-99)
[2019-04-16] MEDS ORDERED: risperiDONE 0.5 MG TAB PO PRN (19:47)
[2019-04-16] MEDS: FAMOTIDINE 20 MG TAB PO SCH (20:31)
[2019-04-16] MEDS: ASPIRIN 325 MG TAB PO SCH (20:31)
[2019-04-16] MEDS: FENOFIBRATE 160 MG TAB PO SCH (20:32)
[2019-04-16 20:49] LABS: Glucose,Whole Blood 142 mg/dL (75-99)
[2019-04-16] MEDS ORDERED: cloNIDine HCL 0.1 MG TAB PO STA (22:25)
--- NOTE | 2019-04-16 23:34 | P.PN ---
Subjective Progress Note Date: 04/16/19 Principal diagnosis: Acute COPD exacerbation due to Community acquired Pneumonia Mr. Irby is a 78-year-old male with a past medical history of hypertension, COPD, GERD, hyperlipidemia, carotid artery endarterectomy[, left leg angioplasty with stent coming in with a chief complaint of difficulty in breathing for the past 1 week. . In the emergency the patient had a chest x-ray which was showing interstitial lung disease with atypical pneumonia and bilateral small effusions. So the patient has been started on ceftriaxone and Zithromax and admitted to the floors for further management. On 04/16/19 - patient is sitting up in the bed with his at the bed side. He reports that his breathing is much better compared to yesterday. He only has mild cough. No chest pain or palpitations. No abdominal pain nausea vomiting or diarrhea. No dysuria or hematuria. Denies having any weakness of his extremities. But his gait has been unsteady. No headaches or blurring of vision or slurring of speech. Pt is confused at times, so has a sitter at bed side. Active Medications Albuterol/Ipratropium (Duoneb 0.5 Mg-3 Mg/3 Ml Soln) 3 ml INHALATION RT-Q4H [facility] Last Admin: 04/16/19 19:00 Dose: 3 ml Documented by: Amlodipine Besylate (Norvasc) 10 mg PO DAILY [facility] Aspirin (Aspirin) 325 mg PO [facility] Last Admin: 04/16/19 20:31 Dose: 325 mg Documented by: Azithromycin (Zithromax) 500 mg PO DAILY [facility] Last Admin: 04/16/19 09:36 Dose: 500 mg Documented by: Budesonide (Pulmicort) 1 mg INHALATION RT-BID [facility] Last Admin: 04/16/19 18:59 Dose: 1 mg Documented by: Famotidine (Pepcid) 20 mg PO [facility] Last Admin: 04/16/19 20:31 Dose: 20 mg Documented by: Fenofibrate (Lofibra) 160 mg PO [facility] Last Admin: 04/16/19 20:32 Dose: 160 mg Documented by: Formoterol Fumarate (Perforomist) 20 mcg INHALATION RT-BID [facility] Last Admin: 04/16/19 19:00 Dose: 20 mcg Documented by: Ceftriaxone Sodium 1 gm/ (Sodium Chloride) 50 mls @ 100 mls/hr IVPB Q24H [facility] Last Admin: 04/16/19 20:31 Dose: 100 mls/hr Documented by: Sodium Chloride (Saline 0.9%) 1,000 mls @ 20 mls/hr IV .Q24H [facility] Last Admin: 04/16/19 11:35 Dose: Not Given Documented by: Insulin Aspart (Novolog) 0 unit SQ ACHS [facility]; Protocol Last Admin: 04/16/19 21:17 Dose: 2 unit Documented by: Methylprednisolone Sodium Succinate (Solu-Medrol) 60 mg IV Q6HR [facility] Last Admin: 04/16/19 17:28 Dose: 60 mg Documented by: Miscellaneous Information (Pneumonia Protocol Utilized) 1 each PO ONCE PRN PRN Reason: Per Protocol Miscellaneous Information (Rx Info: Iv Contrast Was Given) 1 each MISCELLANE DAILY PRN PRN Reason: Per Protocol Stop: 04/18/19 10:35 Risperidone (Risperdal) 0.5 mg PO QID PRN PRN Reason: Delirium Last Admin: 04/16/19 20:32 Dose: 0.5 mg Documented by: Objective - Vital Signs Vital signs: Vital Signs Temp 98.1 F 04/16/19 11:58 Pulse 102 H 04/16/19 11:58 Resp 19 04/16/19 11:58 BP 169/81 04/16/19 11:58 Pulse Ox 95 04/16/19 11:58 Intake & Output 04/15/19 04/16/19 04/16/19 18:59 06:59 18:59 Intake Total 640 1220 120 Balance 640 1220 120 Intake: Intake, IV Titration 640 560 120 Amount Sodium Chloride 0.9% 1, 640 560 120 000 ml @ 20 mls/hr IV . Q24H [facility] Rx#:[id number] Oral 660 Other: # Voids 2 3 - Exam HEAD EXAM: atraumatic, normocephalic, normal inspection EYE EXAM: No pallor. No icterus ENT EXAM: normal exam, mucous membranes moist NECK EXAM: Trachea is midline. No lymphadenopathy. No thyromegaly. RESPIRATORY EXAM: Decreased breath sounds in all lung [place]. Diminished breath sounds more on the right than left. Few crackles at the right lower lung base. CARDIOVASCULAR EXAM: S1-S2 heard. No additional sounds. GI/ABDOMINAL EXAM: Abdomen is soft nontender. No organomegaly. Normal bowel sounds. EXTREMITIES EXAM: No peripheral edema. NEUROLOGICAL EXAM: alert, oriented X3, no focal neurological deficits. PSYCHIATRIC EXAM: normal affect, normal mood SKIN EXAM: warm, dry, intact, normal color. Absent: rash - Labs CBC & Chem 7: 04/16/19 09:05 04/15/19 08:26 Labs: Abnormal Lab Results - Last 24 Hours (Table) 04/15/19 04/16/19 04/16/19 Range/Units 20:12 06:57 09:05 WBC 18.3 H (3.8-10.6) k/uL RBC 3.61 L (4.30-5.90) m/uL Hgb 11.5 L (13.0-17.5) gm/dL Hct 35.3 L (39.0-53.0) % Neutrophils # 16.2 H (1.3-7.7) k/uL Lymphocytes # 0.8 L (1.0-4.8) k/uL POC Glucose (mg/dL) 132 H 105 H (75-99) mg/dL 04/16/19 Range/Units 16:50 WBC (3.8-10.6) k/uL RBC (4.30-5.90) m/uL Hgb (13.0-17.5) gm/dL Hct (39.0-53.0) % Neutrophils # (1.3-7.7) k/uL Lymphocytes # (1.0-4.8) k/uL POC Glucose (mg/dL) 101 H (75-99) mg/dL Microbiology - Last 24 Hours (Table) 04/14/19 09:22 Gram Stain - Final Sputum Sputum Culture - Final 04/13/19 20:53 Blood Culture - Preliminary Blood No Growth after 48 hours 04/13/19 17:43 Blood Culture - Preliminary Blood No Growth after 48 hours Assessment and Plan Assessment: Acute hypoxic respiratory failure secondary to community-acquired pneumonia Cardiac quiet pneumonia Acute exacerbation of COPD For more heavy smoker Hypertension Peripheral arterial disease Hyperlipidemia Status post carotid artery endarterectomy Left femoral angioplasty with stenting in the past PLAN: Patient has been started on ceftriaxone and Zithromax which will be continued for his community-acquired pneumonia. Continue with breathing treatments. His PO Prednisone has been changed to IV Solu Medrol today. Patient had a CT scan of the chest today, results reviewed and discussed it in detail with his . Following on blood and urine cultures. Further recommendations based on the clinical course.
[2019-04-17] MEDS: SODIUM CHLORIDE 0.9% 1,000 ML IV SCH (01:06)
[2019-04-17] MEDS: IPRATROPIUM-ALBUTEROL 3 ML NEB INHALATION SCH ×6 (04:01→22:56)
[2019-04-17] MEDS: methylPREDNISolone SOD SUCCI 125 MG/2 ML VIAL IV SCH ×3 (05:25→18:05)
[2019-04-17 06:56] LABS: Glucose,Whole Blood 118 mg/dL (75-99)
[2019-04-17] MEDS: BUDESONIDE 1 MG/2 ML NEBU INHALATION SCH ×2 (07:19→19:47)
[2019-04-17] MEDS: FORMOTEROL FUMARATE 20 MCG/2 ML NEBU INHALATION SCH ×2 (07:19→19:47)
[2019-04-17] MEDS: INSULIN ASPART (NovoLOG) 100 UNIT/ML VIAL SQ SCH ×4 (08:46→20:46)
[2019-04-17] MEDS: AZITHROMYCIN 500 MG TAB PO SCH (08:49)
[2019-04-17] MEDS ORDERED: amLODIPine 10 MG TAB PO SCH (09:00)
[2019-04-17 09:06] LABS: Basophils # (A) 0.1 k/uL (0-0.2); Basophils % (A) 1 %; Eosinophils % (A) 0 %; HCT 35.8 % (39.0-53.0); HGB 11.8 gm/dL (13.0-17.5); Lymphocytes # (A) 0.6 k/uL (1.0-4.8); Lymphocytes % (A) 7 %; MCH 32.6 pg (25.0-35.0); MCHC 32.9 g/dL (31.0-37.0); MCV 98.9 fL (80.0-100.0); Mean Platelet Volume 8.3; Monocytes # (A) 0.2 k/uL (0-1.0); Monocytes % (A) 2 %; Neutrophils # (A) 7.6 k/uL (1.3-7.7); Neutrophils % (A) 87 %; Platelet Count 253 k/uL (150-450); RBC 3.62 m/uL (4.30-5.90); RDW 15.1 % (11.5-15.5); WBC 8.8 k/uL (3.8-10.6)
[2019-04-17 09:08] LABS: African American GFR (CKD) >90 (>60 ml/min/1.73 sqM); Anion Gap 8 mmol/L; Blood Urea Nitrogen 27 mg/dL (9-20); Calcium 8.2 mg/dL (8.4-10.2); Carbon Dioxide 30 mmol/L (22-30); Chloride 102 mmol/L (98-107); Glucose 124 mg/dL (74-99); Potassium 4.3 mmol/L (3.5-5.1); Sodium 140 mmol/L (137-145)
[2019-04-17 11:14] LABS: Glucose,Whole Blood 154 mg/dL (75-99)
[2019-04-17] MEDS ORDERED: LEVOFLOXACIN 750 MG TAB PO SCH (14:00)
[2019-04-17] MEDS: PIPERACILLIN-TAZOBACTAM 3.375 GM in SODIUM CHLORIDE 0.9% 100 ML IVPB SCH (15:42)
[2019-04-17] MEDS: HEPARIN SODIUM,PORCINE 5,000 UNIT/ML 1 ML VIAL SQ SCH (15:42)
--- NOTE | 2019-04-17 15:48 | P.PN ---
Subjective Progress Note Date: 04/17/19 On 04/17/2019 I'm seeing this patient for a follow-up. Currently the patient is on 10 L of oxygen by nasal cannula. Noted the patient's oxygen requirements have steadily gone up since his admission. He was initially on 2 L and he progressively became more hypoxic at 10 L. Despite the worsening in ox ygenation, the patient is still having no major difficulties in breathing. A congested cough and is unable to bring up any sputum. No fever. No chills. No leukocytosis. No hemoptysis. He has [id number] smoking history and he has advanced COPD. Note that the patient was non-hypoxic approximately 6 months ago and based on our office records the patient was maintaining her pulse ox above 90%. I reviewed the CAT scan findings. There is emphysema. I doubt interstitial lung disease. I feel interstitial pneumonia copy getting the picture especially with the acuity of the clinical presentation. The patient does not have any underlying connective tissue disease. Possibilities such as B OOP, sarcoidosis, high persistent pneumonitis him a chronic area of the such as IPF and MRSA. [place] to be less likely. I'm still favoring infectious agents complicating this patient's pulmonary status. Objective - Vital Signs Vital signs: Vital Signs Temp 97.7 F 04/17/19 05:00 Pulse 94 04/17/19 12:35 Resp 16 04/17/19 12:35 BP 146/68 04/17/19 12:35 Pulse Ox 91 L 04/17/19 12:35 Intake & Output 04/16/19 04/17/19 04/17/19 18:59 06:59 18:59 Intake Total 120 50 Output Total 2025 Balance 120 50 -2025 Intake: Intake, IV Titration 120 50 Amount Sodium Chloride 0.9% 1, 120 000 ml @ 20 mls/hr IV . Q24H KAYLA Rx#:[id number] cefTRIAXone 1 gm In 50 Sodium Chloride 0.9% 50 ml @ 100 mls/hr IVPB Q24H KAYLA Rx#:[id number] Output: Urine 2024 Stool 1 Other: # Voids 1 1 # Bowel Movements 1 - Exam The patient appeared well nourished and normally developed. Vital signs as documented. Head exam is unremarkable. No scleral icterus or corneal arcus noted. Neck is without jugular venous distension, thyromegaly, or carotid bruits. Carotid upstrokes are brisk bilaterally. Lungs diminished breath sounds bilaterally along with scattered expiratory wheezes throughout the lung [place] Cardiac exam reveals the PMI to be normally sized and situated. Rhythm is regular. First and second heart sounds normal. No murmurs, rubs or gallops. Abdominal exam reveals normal bowel sounds, no masses, no organomegaly and no aortic enlargement. Extremities are nonedematous and both femoral and pedal pulses are normal. - Labs CBC & Chem 7: 04/17/19 08:31 04/17/19 08:31 Labs: Abnormal Lab Results - Last 24 Hours (Table) 04/16/19 04/16/19 04/17/19 Range/Units 16:50 20:48 06:50 RBC (4.30-5.90) m/uL Hgb (13.0-17.5) gm/dL Hct (39.0-53.0) % Lymphocytes # (1.0-4.8) k/uL BUN (9-20) mg/dL Glucose (74-99) mg/dL POC Glucose (mg/dL) 101 H 142 H 118 H (75-99) mg/dL Calcium (8.4-10.2) mg/dL 04/17/19 04/17/19 04/17/19 Range/Units 08:31 08:31 11:11 RBC 3.62 L (4.30-5.90) m/uL Hgb 11.8 L (13.0-17.5) gm/dL Hct 35.8 L (39.0-53.0) % Lymphocytes # 0.6 L (1.0-4.8) k/uL BUN 27 H (9-20) mg/dL Glucose 124 H (74-99) mg/dL POC Glucose (mg/dL) 154 H (75-99) mg/dL Calcium 8.2 L (8.4-10.2) mg/dL Microbiology - Last 24 Hours (Table) 04/13/19 20:53 Blood Culture - Preliminary Blood No Growth after 72 hours 04/13/19 17:43 Blood Culture - Preliminary Blood No Growth after 72 hours Assessment and Plan Plan: 1 Acute hypoxic respiratory failure with development of diffuse bilateral pulmonary infiltrates especially in the lung bases right more than left. Based on my review of the CAT scan, there is evidence of emphysema and I favored a superinfection of the lower lobes bilaterally without an underlying interstitial lung disease. This could be potentially interstitial pneumonia. The patient had an acute presentation of acute hypoxic respiratory failure and the patient has been progressively getting more hypoxic initially at 2 L and currently is on 10 L of oxygen nasal cannula. 2 COPD exacerbation secondary to above 3 chronic smoker 4 peripheral vascular disease 5 hypertension 6 hyperlipidemia 7 peripheral vascular disease with previous carotid endarterectomy endovascular intervention to the lower extremities Plan Discussed the findings with the family. We'll put the patient a combination of Zosyn and Levaquin. We'll check Legionella urine antigen. We'll send the connective tissue disease serology panel although my overall suspicion for suspicion for ILD is low. Continue IV Solu-Medrol. Sent serum markers were connective tissue disease. Awaiting pro-calcitonin level. At the end of my evaluation, the patient expressed wishes to transfer this patient [facility]. I will facilitate the transfer. I answered the questions all to the satisfaction.
[2019-04-17 17:11] LABS: Glucose,Whole Blood 164 mg/dL (75-99)
[2019-04-17 20:22] LABS: Glucose,Whole Blood 159 mg/dL (75-99)
[2019-04-17 20:26] VITALS: RESP 18
[2019-04-17] MEDS: FENOFIBRATE 160 MG TAB PO SCH (20:46)
[2019-04-17] MEDS: FAMOTIDINE 20 MG TAB PO SCH (20:46)
[2019-04-17] MEDS: ASPIRIN 325 MG TAB PO SCH (20:46)
[2019-04-17] MEDS ORDERED: CEFDINIR 300 MG CAP PO SCH (21:00)
[2019-04-18] MEDS: methylPREDNISolone SOD SUCCI 125 MG/2 ML VIAL IV SCH (00:40)
[2019-04-18] MEDS: SODIUM CHLORIDE 0.9% 1,000 ML IV SCH (00:41)
[2019-04-18] MEDS: HEPARIN SODIUM,PORCINE 5,000 UNIT/ML 1 ML VIAL SQ SCH (00:41)
[2019-04-18] MEDS: PIPERACILLIN-TAZOBACTAM 3.375 GM in SODIUM CHLORIDE 0.9% 100 ML IVPB SCH (00:41)
[2019-04-18] MEDS: IPRATROPIUM-ALBUTEROL 3 ML NEB INHALATION SCH (02:26)
[2019-04-18 05:11] VITALS: BP 136/66; PULSE 85; TEMP 97.8
[2019-04-18 14:41] LABS: C-ANCA <1:20 Titer (<1:20)
== END 2019-04-18 05:00 | disposition short-term general hospital (02) | DRG 193 ==
LOC: EC 16:36 → 3NMEDONC 20:12
PROVIDERS: ADMIT Internal Medicine; ATTEND Internal Medicine
DX: J18.9 Pneumonia, unspecified organism (principal); J96.01 Acute respiratory failure with hypoxia; J44.0 Chronic obstructive pulmonary disease with (acute) lower respiratory infection; J44.1 Chronic obstructive pulmonary disease with (acute) exacerbation; E78.5 Hyperlipidemia, unspecified; E86.0 Dehydration; F17.210 Nicotine dependence, cigarettes, uncomplicated; I10 Essential (primary) hypertension; I73.9 Peripheral vascular disease, unspecified; K21.9 Gastro-esophageal reflux disease without esophagitis; Z79.82 Long term (current) use of aspirin; Z79.899 Other long term (current) drug therapy; Z95.9 Presence of cardiac and vascular implant and graft, unspecified
CPT/HCPCS: 36415; 71046; 71260; 80048; 80053; 83735; 83880; 84145; 84484; 85025; 85610; 85652; 85730; 86038; 86141; 86255; 87040; 87070; 87205; 87449; 93005; 94640; 94760; 96361; 96365; 96374; 99291